=== PATIENT | female | born 1990 | race Caucasian/White ===

== ENCOUNTER 2019-08-01 06:39 | Day surgery (SDC) | payer OTHER ==
[~2019-08-01] VITALS: Ht 157.5 cm; Wt 99.8 kg
[2019-08-01] MEDS ORDERED: fentaNYL 0.05 MG/ML VIAL ONE (07:45)
[2019-08-01] MEDS ORDERED: MIDAZOLAM 2 MG/2 ML VIAL ONE (07:46)
[2019-08-01] MEDS ORDERED: MIDAZOLAM 2 MG/2 ML VIAL IVP ONE (08:31)
== END 2019-08-01 09:30 | disposition home or self-care (01) ==
LOC: MOR 06:39 → MMU 06:40 → MOR 09:30
PROVIDERS: ATTEND Internal Medicine Gastroenterology
DX: K22.10 Ulcer of esophagus without bleeding (principal); K44.9 Diaphragmatic hernia without obstruction or gangrene; K22.8 Other specified diseases of esophagus; E66.01 Morbid (severe) obesity due to excess calories; K29.70 Gastritis, unspecified, without bleeding; Z68.41 Body mass index [BMI] 40.0-44.9, adult; Z86.711 Personal history of pulmonary embolism
CPT/HCPCS: 36415; 43239; 81025; 86677; J2250; J3010